=== PATIENT | male | born 1970 | race Caucasian/White ===

== ENCOUNTER 2017-02-04 15:36 | Emergency (ER) | payer SELFPAY ==
[~2017-02-04] VITALS: Ht 172.7 cm; Wt 81.0 kg
[2017-02-04 16:10] VITALS: BP 146/83
[2017-02-04] MEDS ORDERED: PERCOCET 5/325M1 TAB PO (16:48)
[2017-02-04] MEDS ORDERED: CLEOCIN150 MG PO (16:48)
== END 2017-02-04 17:15 | disposition home or self-care (01) | DRG 159 ==
LOC: ED 15:36
DX: K04.7 Periapical abscess without sinus (principal)

== ENCOUNTER 2018-12-08 19:29 | Emergency (ER) | payer SELFPAY ==
[~2018-12-08] VITALS: Ht 172.7 cm; Wt 75.0 kg
[~2018-12-08 19:29] MED LIST: CLEOCIN150 MG PO; PERCOCET 5/325M1 TAB PO
[2018-12-08] MEDS ORDERED: KEFLEX500 M1 PO (20:07)
[2018-12-08] MEDS ORDERED: BACTROBAN TOP (20:07)
[2018-12-08 20:15] VITALS: BP 147/88
== END 2018-12-08 20:15 | disposition home or self-care (01) | DRG 603 ==
LOC: ED 19:29
DX: L01.00 Impetigo, unspecified (principal)